=== PATIENT | female | born 2000 | race Two or more races ===

== ENCOUNTER → 2024-04-24 09:02 | Outpatient (CLI) | payer OTHER ==
[~2024-04-24 09:02] MED LIST: PRENATALES
== END | disposition home or self-care (01) ==
LOC: PRENATAL 09:02
PROVIDERS: ATTEND Obstetrics & Gynecology Maternal & Fetal Medicine
DX: O36.80X0 Pregnancy with inconclusive fetal viability, not applicable or unspecified (principal); Z36.82 Encounter for antenatal screening for nuchal translucency; O34.219 Maternal care for unspecified type scar from previous cesarean delivery; Z3A.14 14 weeks gestation of pregnancy

== ENCOUNTER 2024-05-04 13:59 | Emergency (ER) | payer OTHER ==
[~2024-05-04] VITALS: Ht 170.2 cm; Wt 82.6 kg
[2024-05-04] MEDS ORDERED: PRENATALES (14:27)
[2024-05-04] MEDS ORDERED: CEFTRIAXONE SODIUM 2,000 MG VIAL IV STA (16:51)
[2024-05-04 16:55] LABS: URINE APPEARANCE Cloudy; URINE BILIRRUBIN Negative (NEGATIVE); URINE BLOOD Negative; URINE COLOR Yellow; URINE GLUCOSE Negative (NEGATIVE); URINE KETONE Negative (NEGATIVE); URINE LEUKOCYTE Small; URINE NITRATE Negative; URINE PROTEIN Negative (NEGATIVE); URINE UROBILINOGEN 0.2 E.U./dl
[2024-05-04 16:57] LABS: HEMATOCRIT 42.9 % (36.0-45.00); HEMOGLOBIN 14.5 g/dL (12.0-15.00); MEAN CORPUSCULAR HEMOGLOBIN 31.9 pg (27.00-32.0); MEAN CORPUSCULAR HGB CONC 33.9 g/dl (32.0-36.0); PLATELET COUNT 248 K/uL (150-450); RED BLOOD COUNT 4.56 M/uL (4.00-6.00); RED CELL DISTRIBUTION WIDTH 14.1 % (11.5-14.5)
[2024-05-04] MEDS ORDERED: CEFTRIAXONE SODIUM 1,000 MG VIAL ONE (16:58)
[2024-05-04 16:59] LABS: URINE BACTERIA 2916.7 uL (0.0-1933); URINE EPITHELIAL CELLS 15.6 uL (0.0-38.8); URINE RBC 23.5 uL (0.0-20.8); URINE WBC 32.9 uL (0.0-23.2)
[2024-05-04 17:00] LABS: URINE CAST 0.15 uL (0.0-1.40)
[2024-05-04 17:13] LABS: CALCIUM 9.5 mg/dL (8.5-10.1); CREATININE SERUM 0.54 mg/dL (0.55-1.02); GFR 139.9; POTASSIUM 3.8 mEq/L (3.5-5.1)
== END 2024-05-04 18:29 | disposition home or self-care (01) ==
LOC: ER 14:00
PROVIDERS: General Practice
DX: O23.42 Unspecified infection of urinary tract in pregnancy, second trimester (principal); N39.0 Urinary tract infection, site not specified; Z3A.16 16 weeks gestation of pregnancy; Z88.0 Allergy status to penicillin

== ENCOUNTER 2024-06-05 02:42 | Outpatient (CLI) | payer OTHER ==
[2024-06-05 02:21] VITALS: BP 101/66
[2024-06-05] MEDS ORDERED: RINGERS SOLUTION,LACTATED 1,000 ML IV SCH (03:00)
[2024-06-05 03:26] LABS: PH,URINE 7.5 (5.0-8.0); URINE APPEARANCE Turbid; URINE BILIRRUBIN Negative (NEGATIVE); URINE BLOOD Moderate; URINE COLOR Yellow; URINE GLUCOSE Negative (NEGATIVE); URINE KETONE Negative (NEGATIVE); URINE LEUKOCYTE Small; URINE NITRATE Negative; URINE PROTEIN Negative (NEGATIVE); URINE UROBILINOGEN 0.2 E.U./dl
[2024-06-05 03:27] LABS: URINE BACTERIA 1409.8 uL (0.0-1933); URINE RBC 384.9 uL (0.0-20.8); URINE WBC 15.7 uL (0.0-23.2)
[2024-06-05 03:36] LABS: HEMOGLOBIN 13.9 g/dL (12.0-15.00); MEAN CELL VOLUME 96.6 fL (80.00-100.00); MEAN CORPUSCULAR HEMOGLOBIN 33.5 pg (27.00-32.0); MEAN CORPUSCULAR HGB CONC 34.7 g/dl (32.0-36.0); PLATELET COUNT 193 K/uL (150-450); RED BLOOD COUNT 4.14 M/uL (4.00-6.00); RED CELL DISTRIBUTION WIDTH 13.9 % (11.5-14.5)
[2024-06-05 03:37] LABS: URINE CAST 0.76 uL (0.0-1.40)
[2024-06-05 07:30] VITALS: BP 95/62
[2024-06-05 10:54] VITALS: BP 95/62
== END 2024-06-05 12:35 | disposition home or self-care (01) ==
LOC: OBS/DEL 02:42
PROVIDERS: ATTEND Obstetrics & Gynecology
DX: O46.8X2 Other antepartum hemorrhage, second trimester (principal); Z3A.20 20 weeks gestation of pregnancy

== ENCOUNTER → 2024-06-08 15:17 | Outpatient (CLI) | payer OTHER | END | disposition home or self-care (01) | LOC: PRENATAL 15:17 | PROVIDERS: ATTEND Obstetrics & Gynecology Maternal & Fetal Medicine | DX: O44.00 Complete placenta previa NOS or without hemorrhage, unspecified trimester (principal); Z3A.20 20 weeks gestation of pregnancy ==

== ENCOUNTER 2024-09-04 12:19 | Outpatient (CLI) | payer OTHER | END 2024-09-04 12:20 | disposition home or self-care (01) | LOC: PRENATAL 12:19 | PROVIDERS: ATTEND Obstetrics & Gynecology Maternal & Fetal Medicine | DX: O26.849 Uterine size-date discrepancy, unspecified trimester (principal); O36.8199 Decreased fetal movements, unspecified trimester, other fetus; O34.219 Maternal care for unspecified type scar from previous cesarean delivery; Z3A.33 33 weeks gestation of pregnancy ==

== ENCOUNTER 2024-09-27 22:02 | Outpatient (CLI) | payer OTHER ==
[~2024-09-27] VITALS: Ht 170.2 cm; Wt 92.5 kg
[2024-09-27 21:09] VITALS: BP 107/71; BP 107/713
[2024-09-27 22:22] LABS: URINE APPEARANCE Cloudy; URINE BILIRRUBIN Negative (NEGATIVE); URINE BLOOD Small; URINE COLOR Yellow; URINE GLUCOSE Negative (NEGATIVE); URINE KETONE Negative (NEGATIVE); URINE LEUKOCYTE Moderate; URINE NITRATE Negative; URINE PROTEIN Negative (NEGATIVE); URINE UROBILINOGEN 0.2 E.U./dl
[2024-09-27 22:23] LABS: URINE BACTERIA 4538.5 uL (0.0-1933); URINE EPITHELIAL CELLS 23.1 uL (0.0-38.8); URINE RBC 46.1 uL (0.0-20.8); URINE WBC 130.1 uL (0.0-23.2)
[2024-09-27 22:32] LABS: URINE CAST 0.14 uL (0.0-1.40)
[2024-09-27 23:18] VITALS: BP 102/70
[2024-09-27 23:46] LABS: HEMATOCRIT 39.1 % (36.0-45.00); HEMOGLOBIN 13.4 g/dL (12.0-15.00); MEAN CELL VOLUME 94.6 fL (80.00-100.00); MEAN CORPUSCULAR HEMOGLOBIN 32.4 pg (27.00-32.0); MEAN CORPUSCULAR HGB CONC 34.3 g/dl (32.0-36.0); PLATELET COUNT 183 K/uL (150-450); RED BLOOD COUNT 4.13 M/uL (4.00-6.00); RED CELL DISTRIBUTION WIDTH 14.2 % (11.5-14.5)
[2024-09-28 00:14] LABS: INR 0.94; PARTIAL THROMBOPLASTIN TIME 32.1 SECONDS (22.0-34.0); PROTHROMBIN TIME 10.3 SECONDS (9.0-11.5)
[2024-09-28 00:23] LABS: ALBUMIN 2.5 gm/dL (3.4-5.0); BILIRUBIN TOTAL 0.41 mg/dL (0.3-1.2); CALCIUM 8.7 mg/dL (8.5-10.1); CREATININE SERUM 0.49 mg/dL (0.55-1.02); GFR 155.16; GLOBULINA 3.6 G/DL (2.4-3.5); POTASSIUM 3.71 mEq/L (3.5-5.1); TOTAL PROTEIN 6.1 gm/dL (6.4-8.2)
[2024-09-28 03:40] VITALS: BP 96/63
[2024-09-28 06:00] VITALS: BP 90/59; O2SAT 99
[2024-09-28 11:06] VITALS: BP 100/64; O2SAT 98
[2024-09-28 12:20] VITALS: BP 100/64
== END 2024-09-28 12:42 | disposition home or self-care (01) ==
LOC: OBS/DEL 22:02
PROVIDERS: Specialist; ATTEND Obstetrics & Gynecology
DX: O26.893 Other specified pregnancy related conditions, third trimester (principal); Z3A.37 37 weeks gestation of pregnancy

== ENCOUNTER 2024-10-01 10:16 | Inpatient (IN) | payer OTHER ==
[~2024-10-01] VITALS: Ht 170.2 cm; Wt 3.2 kg
[2024-10-01 10:49] LABS: PH,URINE 7.5 (5.0-8.0); URINE APPEARANCE Clear; URINE BILIRRUBIN Negative (NEGATIVE); URINE BLOOD Negative; URINE COLOR Yellow; URINE GLUCOSE Negative (NEGATIVE); URINE KETONE Trace (NEGATIVE); URINE LEUKOCYTE Moderate; URINE NITRATE Negative; URINE PROTEIN Negative (NEGATIVE)
[2024-10-01 10:50] LABS: HEMATOCRIT 43.1 % (36.0-45.00); HEMOGLOBIN 14.6 g/dL (12.0-15.00); MEAN CELL VOLUME 96.2 fL (80.00-100.00); MEAN CORPUSCULAR HEMOGLOBIN 32.5 pg (27.00-32.0); MEAN CORPUSCULAR HGB CONC 33.8 g/dl (32.0-36.0); PLATELET COUNT 182 K/uL (150-450); RED BLOOD COUNT 4.48 M/uL (4.00-6.00); RED CELL DISTRIBUTION WIDTH 14.3 % (11.5-14.5)
[2024-10-01 10:53] LABS: URINE RBC 60.3 uL (0.0-20.8); URINE WBC 108.1 uL (0.0-23.2)
[2024-10-01 11:09] LABS: INR 0.94; PARTIAL THROMBOPLASTIN TIME 32.2 SECONDS (22.0-34.0); PROTHROMBIN TIME 10.3 SECONDS (9.0-11.5)
[2024-10-01 11:16] LABS: URINE CAST 0.29 uL (0.0-1.40)
[2024-10-01 11:27] LABS: ALBUMIN 2.9 gm/dL (3.4-5.0); BILIRUBIN TOTAL 0.67 mg/dL (0.3-1.2); CALCIUM 9.1 mg/dL (8.5-10.1); CREATININE SERUM 0.49 mg/dL (0.55-1.02); GFR 155.16; GLOBULINA 4.3 G/DL (2.4-3.5); POTASSIUM 3.87 mEq/L (3.5-5.1); TOTAL PROTEIN 7.2 gm/dL (6.4-8.2)
[2024-10-01 15:25] LABS: RH POSITIVE
[2024-10-12 08:40] VITALS: BP 108/71
[2024-10-12] MEDS ORDERED: MACROBID 100 M100 MG PO (09:06)
[2024-10-12] MEDS ORDERED: PRENATAL TABLE1 EAC1 PO (09:06)
[2024-10-12] MEDS ORDERED: RINGERS SOLUTION,LACTATED 1,000 ML IV SCH ×2 (09:15→15:45)
[2024-10-12] MEDS ORDERED: CEFAZOLIN SODIUM 1,000 MG VIAL IV NR (09:15)
[2024-10-12] MEDS ORDERED: OXYTOCIN 10 UNITS/ML VIAL ONE ×2 (13:11→17:47)
[2024-10-12] MEDS ORDERED: ERYTHROMYCIN BASE OPHT 1GM EACH TUBE OP ONE (13:11)
[2024-10-12] MEDS ORDERED: MORPHINE SULFATE 4 MG/ML CARTRIDGE IV PRN (14:45)
[2024-10-12] MEDS ORDERED: OXYTOCIN 1,000 ML IV SCH (15:45)
[2024-10-12] MEDS ORDERED: MORPHINE SULFATE 4 MG/ML VIAL IV ONE (16:05)
[2024-10-12] MEDS ORDERED: DOCUSATE SODIUM 100MG CAP PO SCH (17:00)
[2024-10-12] MEDS ORDERED: SIMETHICONE 125 MG CAPSULE PO SCH (18:00)
[2024-10-12 18:14] VITALS: BP 110/73
[2024-10-12 19:10] LABS: HEMATOCRIT 39.7 % (36.0-45.00); HEMOGLOBIN 13.6 g/dL (12.0-15.00); MEAN CELL VOLUME 95.3 fL (80.00-100.00); MEAN CORPUSCULAR HEMOGLOBIN 32.7 pg (27.00-32.0); MEAN CORPUSCULAR HGB CONC 34.3 g/dl (32.0-36.0); PLATELET COUNT 173 K/uL (150-450); RED BLOOD COUNT 4.16 M/uL (4.00-6.00); RED CELL DISTRIBUTION WIDTH 14.2 % (11.5-14.5)
[2024-10-12] MEDS ORDERED: KETOROLAC TROMETHAMINE 30 MG VIAL IM NR (19:30)
[2024-10-12 23:31] VITALS: BP 98/61
[2024-10-13 04:30] VITALS: BP 107/70
[2024-10-13 08:00] VITALS: BP 103/64
[2024-10-13] MEDS ORDERED: IBUprofen 800 MG TABLET PO SCH (09:00)
[2024-10-13 16:41] VITALS: BP 101/66
[2024-10-13 21:02] VITALS: BP 100/63
[2024-10-13 23:41] VITALS: BP 99/64
[2024-10-14 07:59] VITALS: BP 114/79
[2024-10-14 16:34] VITALS: BP 107/76
[2024-10-14] MEDS ORDERED: ZYRTEC 10 MG PO SCH (20:23)
[2024-10-14] MEDS ORDERED: LORATADINE 10 MG TABLET PO SCH (20:51)
[2024-10-15 03:06] VITALS: BP 100/58
[2024-10-15 08:05] VITALS: BP 111/75
== END 2024-10-15 13:42 | disposition home or self-care (01) | DRG 788 ==
LOC: OB/GYN 10-12 09:00 → LDR 10-12 09:00 → O/R 10-12 13:53 → OB/GYN 10-12 14:59
PROVIDERS: ADMIT Obstetrics & Gynecology; ATTEND Obstetrics & Gynecology
PROC: 4A1HXCZ Monitoring of Products of Conception, Cardiac Rate, External Approach (ICD-10-PCS; 2024-10-12)
PROC: 10D00Z1 Extraction of Products of Conception, Low, Open Approach (ICD-10-PCS; principal; 2024-10-12 17:30)
DX: O34.211 Maternal care for low transverse scar from previous cesarean delivery (principal); Z3A.39 39 weeks gestation of pregnancy; Z37.0 Single live birth